=== PATIENT | male | born 1955 | race American Indian/Alaskan Native ===

== ENCOUNTER 2017-12-01 19:42 | Inpatient (IN) | payer BC ==
[2017-12-01 19:43] VITALS: BMI 38.0
[2017-12-01] MEDS ORDERED: Insulin Regular 1 UNITS/0.01 ML ML IV STA (20:08)
[2017-12-01] MEDS ORDERED: EnalaprilAT 1.25 mg/ml Inj IVP STA (20:10)
[2017-12-01] MEDS ORDERED: Sodium Chloride 0.9% 1,000 ML IV ONE (20:10)
--- NOTE | 2017-12-01 20:16 | ED PDOC ---
Arrival/HPI - General Chief Complaint: High Blood Sugar Time Seen by Provider: 12/01/17 19:45 Historian: Patient, Family (Son) - History of Present Illness Time/Duration: > month Symptom Onset: Gradual Symptom Course: Worsening Severity Level: Moderate Associated Symptoms (Text): 12/01/17 20:14 Patient reports that he went to visit his father in [place] approximately one month ago and ran out of all of his medications including his insulin. His blood sugar and blood pressure had been elevated. He has polyuria and polydipsia. No headache dizziness or lightheadedness. No chest pain palpitations or dyspnea. No abdominal pain nausea vomiting or diarrhea. No fever or chills. Past Medical History - Infectious Disease Hx of Infectious Diseases: None - Cardiac Hx Cardiac Disorders: Yes Hx Hypertension: Yes - Pulmonary Hx Respiratory Disorders: Yes Hx Pneumonia: Yes - Neurological Hx Neurological Disorder: No - HEENT Hx HEENT Disorder: Yes (left ear hearing aid) - Renal Hx Renal Disorder: No - Endocrine/Metabolic Hx Endocrine Disorders: Yes Hx Diabetes Mellitus Type 1: Yes Other/Comment: DKA - Hematological/Oncological Hx Blood Disorders: No - Integumentary Hx Dermatological Disorder: No - Musculoskeletal/Rheumatological Hx Musculoskeletal Disorders: No - Gastrointestinal Hx Gastrointestinal Disorders: No - Genitourinary/Gynecological Hx Genitourinary Disorders: No - Psychiatric Hx Psychophysiologic Disorder: No Hx Substance Use: No - Anesthesia Hx Anesthesia Reactions: No - Suicidal Assessment Feels Threatened In Home Enviroment: No Family/Social History - Physician Review Nursing Documentation Reviewed: Yes Family/Social History: Unknown Family HX Smoking Status: Never Smoked Hx Alcohol Use: No Hx Substance Use: No Allergies/Home Meds Allergies/Adverse Reactions: Allergies No Known Allergies Allergy (Verified 12/01/17 19:44) Review of Systems - Physician Review All systems were reviewed & negative as marked: Yes - Review of Systems Constitutional: Fatigue. absent: Fevers Respiratory: absent: SOB, Cough, Wheezing Cardiovascular: absent: Chest Pain, Palpitations, Syncope Gastrointestinal: absent: Abdominal Pain, Diarrhea, Nausea, Vomiting, Anorexia Genitourinary Male: Frequency. absent: Dysuria, Hematuria Neurological: absent: Headache, Dizziness, Focal Weakness Physical Exam Vital Signs Temp Pulse Resp BP Pulse Ox 12/01/17 21:17 87 18 165/113 H 97 12/01/17 20:22 160/82 H 12/01/17 19:47 98.7 F 98 H 17 180/130 H 95 Temperature: Afebrile Blood Pressure: Hypertensive Pulse: Regular Respiratory Rate: Normal Appearance: Positive for: Well-Appearing, Non-Toxic, Comfortable Pain Distress: None Mental Status: Positive for: Alert and Oriented X 3 - Systems Exam Head: Present: Atraumatic, Normocephalic Pupils: Present: PERRL Extroacular Muscles: Present: EOMI Conjunctiva: Present: Normal Mouth: Present: Moist Mucous Membranes Pharnyx: No: ERYTHEMA, EXUDATE, TONSILS ENLARGED Neck: Present: Normal Range of Motion Respiratory/Chest: Present: Clear to Auscultation, Good Air Exchange, Decreased Breath Sounds. No: Respiratory Distress, Accessory Muscle Use Cardiovascular: Present: Regular Rate and Rhythm, Normal S1, S2. No: Murmurs Abdomen: No: Tenderness, Distention, Peritoneal Signs, Rebound, Guarding Back: Present: Normal Inspection Upper Extremity: Present: Normal Inspection. No: Cyanosis, Edema Lower Extremity: Present: Normal Inspection. No: Edema Neurological: Present: GCS=15, CN II-XII Intact, Speech Normal, Motor Func Grossly Intact Skin: Present: Warm, Dry, Normal Color. No: Rashes Psychiatric: Present: Alert, Oriented x 3, Normal Insight, Normal Concentration Medical Decision Making ED Course and Treatment: 12/01/17 20:18 EKG shows normal sinus rhythm rate approximately 90 with a primary AV block and no acute ST or T-wave changes 12/01/17 21:39 Discussed with , who accepts to her service on a telemetry observation bed. - Lab Interpretations Lab Results: 12/01/17 20:24 12/01/17 20:24 Lab Results 12/01/17 20:24: Sodium 132, Chloride 95 L, Potassium 3.9, Carbon Dioxide 26, Anion Gap 15, BUN 19, Creatinine 1.0, Est GFR ( Amer) > 60, Est GFR (Non- Af Amer) > 60, Random Glucose 591 H* D, Calcium 9.0, Magnesium 1.9, Total Bilirubin 0.5, AST 16 L, ALT 43, Alkaline Phosphatase 135 H, Lactate Dehydrogenase 604, Total Creatine Kinase 183, Troponin I < 0.01 D, Total Protein 7.4, Albumin 4.1, Globulin 3.3, Albumin/Globulin Ratio 1.2 12/01/17 20:24: pO2 58 H, VBG pH 7.39, VBG pCO2 47.0, VBG HCO3 28.5 H, VBG Total CO2 29.9 H, VBG O2 Sat (Calc) 92.4 H, VBG Base Excess 2.8 H, VBG Potassium 3.9, Sodium 132.0, Chloride 93.0 L, Glucose 666 H*, Lactate 1.1, FiO2 21.0, Venous Blood Potassium 3.9 12/01/17 20:24: WBC 8.2, RBC 5.29, Hgb 15.1, Hct 41.8 L, MCV 79.0 L, MCH 28.5, MCHC 36.1, RDW 12.6, Plt Count 242, MPV 11.4 H, Gran % 62.8, Lymph % (Auto) 28.8 , [place] % (Auto) 6.3 H, Eos % (Auto) 2.0, Baso % (Auto) 0.1, Gran # 5.12, Lymph # (Auto) 2.4, [place] # (Auto) 0.5, Eos # (Auto) 0.2, Baso # (Auto) 0.01 - RAD Interpretation Radiology Orders: 12/01/17 20:07 CHEST PORTABLE [RAD] Stat Chest one view shows no infiltrate effusion or cardiomegaly. Business Continuity Specialist: ED Physician - Medication Orders Current Medication Orders: Sodium Chloride (Sodium Chloride 0.9%) 1,000 mls @ 500 mls/hr IV ONCE ONE Stop: 12/01/17 22:09 Last Admin: 12/01/17 20:21 Dose: 500 mls/hr eMAR Start Stop Document 12/01/17 20:21 CNR (Rec: 12/01/17 20:22 CNR [id number]) Intravenous Solution Start Date 12/01/17 Start Time 20:22 Discontinued Medications Enalaprilat (Vasotec Iv) 5 mg IVP STAT STA Stop: 12/01/17 20:11 Last Admin: 12/01/17 20:22 Dose: 5 mg MAR Blood Pressure Document 12/01/17 20:22 CNR (Rec: 12/01/17 20:22 CNR [id number]) Blood Pressure Blood Pressure (100/60-150/90 mm Hg) 160/82 IVP Administration Document 12/01/17 20:22 CNR (Rec: 12/01/17 20:22 CNR [id number]) Charges for Administration # of IVP Administrations 1 Insulin Human Regular (Humulin R) 10 units IV ONCE STA Stop: 12/01/17 20:09 Last Admin: 12/01/17 20:22 Dose: 10 u eMAR Start Stop Document 12/01/17 20:22 CNR (Rec: 12/01/17 20:22 CNR [id number]) Intravenous Solution Start Date 12/01/17 Start Time 20:22 Disposition/Present on Arrival - Present on Arrival Any Indicators Present on Arrival: No History of DVT/PE: No History of Uncontrolled Diabetes: Yes Urinary Catheter: No History of Decub. Ulcer: No History Surgical Site Infection Following: None - Disposition Have Diagnosis and Disposition been Completed?: Yes Diagnosis: Hypertension, Hyperglycemia Disposition: HOSPITALIZED Disposition Time: 21:34 Patient Plan: Observation, Telemetry Patient Problems: Current Active Problems Problem Status Onset Hyperglycemia Acute Hypertension Acute Condition: GOOD Forms: [employer] ([place])
[2017-12-01 20:28] LABS: VENOUS BLOOD GAS BASE EXCESS 2.8 mmol/L (0.0-2.0); VENOUS BLOOD GAS PO2 58 mm/Hg (30-55); VENOUS BLOOD PH 7.39 (7.32-7.43)
[2017-12-01 20:34] LABS: BASO # 0.01 K/mm3 (0.0-2.0); BASO % 0.1 % (0.0-3.0); EOS # 0.2 (0.0-0.7); GRAN # 5.12 (1.4-6.5); GRAN % 62.8 % (50.0-68.0); HEMOGLOBIN 15.1 g/dL (14.0-18.0); LYMPH # 2.4 (1.2-3.4); LYMPH % 28.8 % (22.0-35.0); MEAN CORPUSCULAR HEMOGLOBIN 28.5 pg (25.0-35.0); MEAN CORPUSCULAR HGB CONC 36.1 g/dl (31.0-37.0); MEAN PLATELET VOLUME 11.4 fl (7.0-11.0); MONO # 0.5 (0.1-0.6); MONO % 6.3 % (1.0-6.0); RBC 5.29 10^6/uL (3.5-6.1); RED CELL DISTRIBUTION WIDTH 12.6 % (11.5-14.5); WHITE BLOOD COUNT 8.2 10^3/ul (4.5-11.0)
[2017-12-01 20:48] LABS: ALB/GLOB RATIO 1.2 (1.1-1.8); ALBUMIN 4.1 g/dL (3.0-4.8); ALT/SGPT 43 U/L (7-56); AST/SGOT 16 U/L (17-59); BLOOD UREA NITROGEN 19 mg/dL (7-21); GFR AFRICAN-AMERICAN > 60; GFR NON-AFRICAN AMERICAN > 60
[2017-12-01 20:51] LABS: TROPONIN I < 0.01 ng/mL
[2017-12-01 23:06] LABS: URINE BILIRUBIN NEGATIVE (NEGATIVE); URINE BLOOD NEGATIVE (NEGATIVE); URINE GLUCOSE (UA) >=1000 mg/dL (NEGATIVE); URINE LEUKOCYTE ESTERASE NEGATIVE Leu/uL (NEGATIVE); URINE PROTEIN NEGATIVE mg/dL (<30 mg/dL); URINE UROBILINOGEN 0.2 E.U./dL (<1 E.U./dL)
[2017-12-01 23:07] LABS: URINE APPEARANCE CLEAR (CLEAR); URINE COLOR YELLOW (YELLOW)
[2017-12-02] MEDS: Sodium Chloride 0.9% 1,000 ML IV SCH ×3 (00:39→21:53)
[2017-12-02] MEDS ORDERED: Insulin Regular 1 UNITS/0.01 ML ML SC STA (01:20)
[2017-12-02] MEDS: Insulin Reg-MEDIUM-Coverage SC SCH ×3 (08:01→16:46)
--- NOTE | 2017-12-02 08:50 | RAD ---
Date of service: 12/01/2017 HISTORY: weak COMPARISON: 06/06/2016 FINDINGS: LUNGS: No active pulmonary disease. PLEURA: No significant pleural effusion identified, no pneumothorax apparent. CARDIOVASCULAR: Normal. OSSEOUS STRUCTURES: No significant abnormalities. VISUALIZED UPPER ABDOMEN: Normal. OTHER FINDINGS: None. IMPRESSION: No active disease.
[2017-12-02 17:09] LABS: HDL CHOLESTEROL 39 mg/dL (29-60)
[2017-12-02 17:21] LABS: LDL CHOLESTEROL 54 mg/dL (0-129); TROPONIN I < 0.01 ng/mL
[2017-12-02] MEDS ORDERED: Potassium Chloride 20 mEq ER Tab PO ONE (18:07)
[2017-12-02] MEDS: Insulin Lispro (humaLOG) LOW Coverage SC SCH (21:52)
[2017-12-02] MEDS ORDERED: Insulin Detemir 100 units/ml Vial (Levemir) SC SCH (22:00)
[2017-12-02 22:35] LABS: FOLATE 16.1 ng/mL
--- NOTE | 2017-12-03 02:15 | CON ---
Copied To: Nancy Jain MD Attending MD: Nancy Jain MD DATE: 12/02/2017 ENDOCRINOLOGY CONSULTATION LOCATION: Room 265. HISTORY OF PRESENT ILLNESS: This is a 62-year-old male with known history of type 2 insulin-requiring diabetes presenting here with marked hyperglycemic accelerations related to inadvertent drug omission after the patient apparently ran out of his insulin supply, was visiting his father in [place], and is now being referred for diabetic evaluation and management. PAST MEDICAL HISTORY: History of type 2 insulin-requiring diabetes, on a combination of Humalog given as 12 units t.i.d. before meals with Levemir given as 20 units every 12 hours in combination with Janumet given as mg b.i.d., history of hypertensive cardiovascular disease and dyslipidemia. FAMILY HISTORY: Positive for diabetes and hypertension. SOCIAL HISTORY: The patient has supportive family. No known substance use. REVIEW OF SYSTEMS: As mentioned above. Admits to progressive bouts of dizziness and lightheadedness, worse in the last week or so prior to admission with bifrontal headaches and visual blurring as noted. Also admits to generalized body weakness with increasing somnolence and lethargy, again, worse in the last few days prior to admission. No chest pains or palpitations or PND. His oral intake has been variable with occasional dyspepsia and nausea, but no overt vomiting episodes. Also admits to marked polyuria, nocturia and polydipsia and about a 10-pound or so weight loss. Also admits to lower extremity paresthesias, especially, nocturnally. PHYSICAL EXAMINATION: GENERAL: This is an overweight male, in no apparent distress. VITAL SIGNS: Blood pressure of 180/100, pulse of 100 beats per minute regular, temperature 99, respirations 20, height is 6 feet, weight is 269 pounds. HEENT: Head normocephalic. Eyes anicteric with pink conjunctivae. Funduscopy not possible at this time. Ears, nose and throat otherwise normal. NECK: Supple. Thyroid gland is normal in size. No carotid bruits or cervical adenopathy. CARDIOPULMONARY: Some adynamic precordium. S1, S2 is rapid and regular. LUNGS: Clear to auscultation. ABDOMEN: Obese, soft with positive bowel sounds. EXTREMITIES: No peripheral edema. Pulses are +2 bilaterally. LABORATORY DATA: His chemistry showed a BUN of 19, sodium 132, potassium 3.9, chloride 95, CO2 of 26, glucose 591 and creatinine 1. His hemoglobin A1c is 14.8% which is clearly elevated and indicative of suboptimal metabolic control of his diabetic condition. The repeat A1c is 15% done tonight as noted. ASSESSMENT: This is a 62-year-old male with uncontrolled and decompensated type 2 insulin-requiring diabetes with marked hyperglycemic accelerations with clearly suboptimal metabolic control of his diabetic condition even prior to this admission and even prior to his inadvertent omission of his insulin regimen and also presents here with accelerated hypertension as noted thereof. PLAN OF MANAGEMENT: We will restart the patient once again on more physiologic basal and bolus insulin drug combination as ordered. We will start him with Levemir given as 20 units subcu at bedtime daily to start tonight. We will also add Humalog given as 10 units subcutaneous t.i.d. before meals to start at breakfast time tomorrow morning as ordered. We will modify the coverage scale to obviate hypoglycemia and detailed orders have been given. We will also increase his IV hydration with normal saline running at 100 mL/hour to fully replenish his lost fluids and electrolytes from the increased osmotic diuresis as expected thereof. We will obtain serial chemistries and supplement accordingly as needed. We will follow. Nancy Jain MD
--- NOTE | 2017-12-03 06:58 | CARD ---
APPROVED REPORT Date of service: 12/01/2017 EKG Measurement Heart [id number] <Conclusion> Normal sinus rhythm Voltage criteria for left ventricular hypertrophy Abnormal ECG
--- NOTE | 2017-12-03 07:44 | CP.PCM.PN ---
Subjective - Date & Time of Evaluation Date of Evaluation: 12/03/17 Time of Evaluation: 07:30 - Subjective Subjective: Endocrinology progress note for Dr. Jain: Patient was seen and examined at bedside. Patient resting in bed comfortably. States that he is feeling much better. States that his blood sugars have been in the high 200's. No other complaints. 12 point ROS performed and negative other than stated above. Objective - Vital Signs/Intake and Output Vital Signs (last 24 hours): Temp Pulse Resp BP Pulse Ox 97.9 F 65 18 170/105 H 98 12/03/17 06:00 12/03/17 06:35 12/03/17 06:00 12/03/17 06:35 12/03/17 06:00 Intake and Output: 12/03/17 12/03/17 06:59 18:59 Intake Total 1700 Output Total 900 Balance 800 - Medications Medications: Current Medications Clonidine HCl (Catapres) 0.2 mg PO TID JUANPABLO Sodium Chloride (Sodium Chloride 0.9%) 1,000 mls @ 100 mls/hr IV .Q10H JUANPABLO Last Admin: 12/02/17 21:53 Dose: 100 mls/hr Insulin Detemir (Levemir) 20 unit SC HS JUANPABLO Last Admin: 12/02/17 21:52 Dose: 20 units Insulin Human Lispro (Humalog Low) 0 units SC ACHS JUANPABLO PRN Reason: Protocol Last Admin: 12/02/17 21:52 Dose: Not Given Insulin Human Lispro (Humalog) 10 units SC AC JUANPABLO Lisinopril (Zestril) 40 mg PO DAILY JUANPABLO - Constitutional Appears: No Acute Distress - Head Exam Head Exam: ATRAUMATIC, NORMOCEPHALIC - Eye Exam Eye Exam: EOMI - ENT Exam ENT Exam: Mucous Membranes Moist - Respiratory Exam Respiratory Exam: Clear to Ausculation Bilateral. absent: Wheezes - Cardiovascular Exam Cardiovascular Exam: RRR, +S1, +S2 - GI/Abdominal Exam GI & Abdominal Exam: Soft. absent: Tenderness - Extremities Exam Extremities Exam: absent: Calf Tenderness - Neurological Exam Neurological Exam: Alert, Awake, Oriented x3 - Psychiatric Exam Psychiatric exam: Normal Mood - Skin Skin Exam: Dry, Intact, Warm Assessment and Plan - Assessment and Plan (Free Text) Assessment: 62 M with uncontrolled and decompensated insulin requiring diabetes with marked hyperglycemic accelerations 2/2 inadvertent omission of his insulin regimen at home. Carb consistent diet Continue Basal insulin Levemir 30 HS Cont Bolus insulin of Humalog 10units AC ISS with Humalog as protocol Cont home (Janumet ) with Jauvia 100mg daily and Metformin 1000mg BID Serial chemistries Fingersticks ACHS Case and plan was reviewed and discussed with Dr Jain. Mina Eduardo, PGY3
[2017-12-03] MEDS: Sodium Chloride 0.9% 1,000 ML IV SCH (07:45)
--- NOTE | 2017-12-03 07:45 | CON ---
Copied To: Kayden Nuñez MD Attending MD: Kayden Nuñez MD DATE: 12/02/2017 CARDIOLOGY CONSULTATION REASON FOR CONSULTATION: Uncontrolled hypertension. HISTORY OF PRESENT ILLNESS: The patient is 62-year-old -[place] male who has history of hypertension, reportedly he went to visit his father in [place] one month ago and ran out of his medications including blood pressure and diabetic medications. The patient was experiencing polyuria and polydipsia. He denies any chest pain. He did report headache at times. The patient did not have a clear reason why he did not renew his medications. At this time, patient denies any chest pain and he is unaware of any prior cardiac issue other than a history of hypertension. SOCIAL HISTORY: Patient is a nonsmoker. 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 MEDICATIONS: The patient home medications, which he had now is including amlodipine/valsartan 10/320 mg once a day, Janumet mg one tablet twice a day, Toprol XL 50 mg daily, hydralazine 10 mg three times a day, K-Dur 20 mEq once a day and Tylenol one tablet p.r.n. Current hospital medications are Zestril 40 mg p.o. daily. Patient did receive regular insulin coverage and 5 mg of IV Vasotec as a single stat dose earlier. REVIEW OF SYSTEMS: No nausea or vomiting. No fever or chills. No dizziness or syncope. PHYSICAL EXAMINATION: GENERAL: The patient is a middle-aged male who does not appear to be in any acute distress. VITAL SIGNS: Blood pressure 154/112, heart rate 78, temperature 97.8, respirations 18. HEENT: Normocephalic. NECK: No JVD. CHEST: Clear. HEART: S1, S2 regular. ABDOMEN: Soft. EXTREMITIES: No edema. LABORATORY DATA: SMA-7: Sodium 132, potassium 3.9, chloride 95, CO2 of 26, glucose 591, BUN 19, creatinine 1. Cardiac enzymes, two sets of troponins were negative. Lipid profile; total cholesterol 122, triglycerides 171, HDL cholesterol is 39, LDL cholesterol is 54. Alkaline phosphatase elevated to 135. CBC: WBC is 8.2, hemoglobin 15.1, hematocrit 41.8, platelet count 242,000. EKG revealed sinus rhythm, LVH by voltage, heart rate is 90. Echocardiographic study performed in 05/2016 revealed normal ventricular size, moderate concentric LVH with normal ejection fraction and grade I abnormal relaxation pattern. ASSESSMENT: 1. Uncontrolled hypertension. 2. Uncontrolled diabetes mellitus. 3. Hypertriglyceridemia most likely to uncontrolled diabetes mellitus. The patient's hemoglobin A1c is 14.8. RECOMMENDATIONS: Optimize blood sugar control. Continue IV hydration with normal saline at 60 mL an hour. Continue Zestril 40 mg p.o. daily. Start clonidine at 0.2 mg p.o. twice a day. I will administer one dose of Lasix 40 mg IV push as single dose and K-Dur 20 mEq as a single oral dose. Kayden Nuñez MD
[2017-12-03 07:51] LABS: HEMOGLOBIN 13.6 g/dL (14.0-18.0); MEAN CELL VOLUME 79.4 fl (80.0-105.0); MEAN CORPUSCULAR HEMOGLOBIN 27.5 pg (25.0-35.0); MEAN CORPUSCULAR HGB CONC 34.6 g/dl (31.0-37.0); MEAN PLATELET VOLUME 11.1 fl (7.0-11.0); RBC 4.95 10^6/uL (3.5-6.1); RED CELL DISTRIBUTION WIDTH 13.1 % (11.5-14.5); WHITE BLOOD COUNT 8.2 10^3/ul (4.5-11.0)
[2017-12-03] MEDS: Insulin Lispro (humaLOG) LOW Coverage SC SCH ×4 (08:05→22:24)
[2017-12-03 08:10] LABS: BLOOD UREA NITROGEN 15 mg/dL (7-21); GFR AFRICAN-AMERICAN > 60; GFR NON-AFRICAN AMERICAN > 60
[2017-12-03 08:11] LABS: ALB/GLOB RATIO 1.1 (1.1-1.8); ALBUMIN 3.2 g/dL (3.0-4.8); ALT/SGPT 26 U/L (7-56); AST/SGOT 14 U/L (17-59); CALCIUM 8.5 mg/dL (8.4-10.5)
[2017-12-03] MEDS: Insulin Lispro 1 UNITS/0.01 ML SC SCH ×3 (08:48→17:09)
--- NOTE | 2017-12-03 09:00 | HP ---
12/02/17 Copied To: Barbara Hamilton MD Attending MD: Barbara Hamilton MD CHIEF COMPLAINT: High blood sugar. HISTORY OF PRESENT ILLNESS: Mr. John Cowan reports that he went to visit his father in [place] approximately one month ago and ran out of all his medications including insulin. His blood sugar and blood pressure had been elevated. He has polyuria, polydipsia. No headache, dizziness, or lightheadedness. No chest pain, palpitations, or dyspnea. No abdominal pain. No fever. No chills, but feeling fatigued and tired. Patient's two children are nurses, they forced the father to go to the hospital. PAST MEDICAL HISTORY: Hypertension, history of pneumonia, left ear hearing aid, diabetes mellitus . FAMILY HISTORY: Father and mother, noncontributory. HABITS: Never smoked. No drugs. No ethanol. ALLERGIES: PATIENT IS NOT ALLERGIC WITH ANY MEDICATION. HOME MEDICATIONS: Reviewed by me, but patient is noncompliant . REVIEW OF SYSTEMS: Patient is seen and examined on the bedside, looking comfortable that moment. Feeling just fatigued. No fever. No shortness of breath, cough, or wheezing. No chest pain, palpitation, or syncope. No abdominal pain, diarrhea, nausea, vomiting, or anorexia, but having frequency of urination. No dysuria or hematuria. No headache, dizziness, or focal weakness. PHYSICAL EXAMINATION: VITAL SIGNS: Temperature 98.7, pulse 98, respiratory rate 17, blood pressure 180/130, pulse oximetry 95%. HEENT: Head normocephalic, atraumatic. Eyes PERRLA. Extraocular muscles intact. Conjunctivae clear. Nose patent. Mucous membranes moist. NECK: Supple. No carotid bruit. No JVD or thyromegaly. CHEST: Bilaterally symmetrical. HEART: S1 and S2 positive. LUNGS: Clear to auscultation. ABDOMEN: Soft. Bowel sounds present. No organomegaly. EXTREMITIES: No edema. No cyanosis. NEUROLOGIC: Patient is awake and alert. Moving all four extremities. No focal deficit. LABORATORY DATA: White blood cells 8.2, hemoglobin of 15.1, hematocrit 41.8, platelets 242. Sodium 132, potassium 3.9, BUN 90, creatinine 1, glucose 591. ASSESSMENT AND PLAN: Mr. Cowan is a 62-year-old male with hypochloremia, uncontrolled diabetes mellitus , insulin requiring, noncompliant with the medications. Came with hyperglycemia, polyuria, fatigue, accelerated hypertension, history of left hearing aid. We admitted the patient, gave insulin and put on sliding scale. Endocrinology consult called. Medicine given for blood pressure. Gastrointestinal and deep vein thrombosis prophylaxes. Continue present treatment. Repeat labs. We will follow up. Barbara Hamilton MD MTDD
--- NOTE | 2017-12-03 10:11 | PN ---
Copied To: Nancy Jain MD Attending MD: Nancy Jain MD DATE: 12/03/2017 ENDOCRINOLOGY FOLLOWUP NOTE LOCATION: Room 265. SUBJECTIVE: This is a 62-year-old male with recent uncontrolled type 2 insulin-requiring diabetes presenting here with generalized body weakness and marked polyuria, nocturia and polydipsia with apparent recent drug omission of his insulin regimen while visiting his father and is now being followed closely for metabolic management. His glycemic levels are fluctuating but improved as noted overnight and the glucose levels overnight have ranged from 236-280 mg/dL. The latest chemistries showed a BUN of 15, sodium 137, potassium 3.8, chloride 100, CO2 of 30, glucose 251 and creatinine 0.9. His hemoglobin A1c is 15 % which is quite elevated and is confirmatory of his suboptimal metabolic control on the outpatient as noted thereof. ASSESSMENT: This is a 62-year-old male with uncontrolled and decompensated type 2 insulin-requiring diabetes with recent drug omission from a recent travel to [place] and ran out of his insulin supplies and is now being admitted with marked hyperglycemic accelerations as noted thereof. PLAN OF MANAGEMENT: We will modify his current basal and bolus insulin regimen and add Humalog given as 10 units t.i.d. before meals to start this morning as ordered. We will also titrate and increase his basal insulin with Levemir to be given at a higher dose of 30 units subcu at bedtime daily to start tonight. We will continue the low-dose correction scale using Humalog insulin as given. We will continue the IV hydration as ordered and obtain serial chemistries and supplement accordingly as needed. We will follow and advise accordingly. Nancy Jain MD
[2017-12-03] MEDS ORDERED: Potassium Chloride 20 mEq ER Tab PO ONE (14:08)
--- NOTE | 2017-12-03 19:14 | PN ---
Copied To: Matilde Renteria MD Attending MD: Matilde Renteria MD DATE: 12/03/2017 REASON FOR CONSULTATION AND FOLLOWUP: Uncontrolled hypertension. SUBJECTIVE: The patient denies any chest pain, shortness of breath, or any palpitation. OBJECTIVE: GENERAL: Not in apparent distress. VITAL SIGNS: Temperature afebrile, heart rate 64, blood pressure 149/112. HEENT: PERRLA. Extraocular muscles are intact. NECK: Supple. No carotid bruits. No thyromegaly. CHEST: Clear to auscultation. HEART: S1 and S2, regular. ABDOMEN: Soft. EXTREMITIES: Clubbing and cyanosis, negative. LABORATORY DATA: Blood workup as follows: WBC 8.8, hemoglobin 13.6, hematocrit 39.3, and platelet count 222. Chemistry showed sodium 137, potassium 3.8, chloride 100, carbon dioxide 30, anion gap of 11. BUN 15, creatinine 0.9. TSH 1.3. Triglyceride 171, cholesterol 122, LDL 54, HDL 39. IMPRESSION: A 62-year-old male with past medical history significant for hypertension, on multiple hypertensive medication; admitted with uncontrolled hypertension, who ran out of medication, who reportedly visit to [place] to see his ailing father and got ran out the medication, came in here with uncontrolled hypertension, 180/130 diastolic. The patient denies any chest pain, shortness of breath, or any palpitation. So far, no evidence of acute myocardial infarction. Troponin remains flat x3. RECOMMENDATIONS: Aggressive control of blood pressure. We will get the lipid profile, TSH, hemoglobin A1c. Echo to assess LV function. Once the patient's blood pressure is well controlled, we will do a stress test as outpatient. We will follow with you. Thank you Dr. Hamilton, for providing us the opportunity in taking care of the patient, John Cowan. Matilde Renteria MD
[2017-12-03] MEDS ORDERED: Insulin Detemir 100 units/ml Vial (Levemir) SC SCH (22:00)
[2017-12-04] MEDS: Insulin Lispro 1 UNITS/0.01 ML SC SCH ×3 (07:55→17:32)
--- NOTE | 2017-12-04 07:56 | CP.PCM.PN ---
Subjective - Date & Time of Evaluation Date of Evaluation: 12/04/17 Time of Evaluation: 07:00 - Subjective Subjective: Endocrinology progress note for Dr. Jain: Patient was seen and examined at bedside. Patient resting in bed comfortably. Feeling well. No complaints at this time. 12 point ROS performed and negative other than stated above. Objective - Vital Signs/Intake and Output Vital Signs (last 24 hours): Temp Pulse Resp BP Pulse Ox 98.2 F 89 16 155/88 H 95 12/04/17 00:01 12/04/17 02:00 12/04/17 00:01 12/03/17 18:18 12/04/17 00:01 Intake and Output: 12/04/17 12/04/17 06:59 18:59 Intake Total 540 Output Total 1400 Balance -860 - Medications Medications: Current Medications Furosemide (Lasix) 40 mg PO DAILY [facility] Hydralazine HCl (Apresoline) 10 mg PO Q6 PRN PRN Reason: for SBP >160 Hydralazine HCl (Apresoline) 50 mg PO TID [facility] Last Admin: 12/03/17 18:18 Dose: 50 mg Insulin Detemir (Levemir) 30 unit SC HS [facility] Last Admin: 12/03/17 22:25 Dose: 30 unit Insulin Human Lispro (Humalog Low) 0 units SC ACHS [facility] PRN Reason: Protocol Last Admin: 12/03/17 22:24 Dose: 2 units Insulin Human Lispro (Humalog) 14 units SC AC [facility] Lisinopril (Zestril) 40 mg PO DAILY [facility] Last Admin: 12/03/17 10:09 Dose: 40 mg Metformin HCl (Glucophage) 1,000 mg PO BID [facility] Last Admin: 12/03/17 17:51 Dose: 1,000 mg Metoprolol Tartrate (Lopressor) 25 mg PO BID [facility] Last Admin: 12/03/17 17:51 Dose: 25 mg Sitagliptin Phosphate (Januvia) 100 mg PO DAILY [facility] Spironolactone (Aldactone) 25 mg PO BID [facility] Last Admin: 12/03/17 17:52 Dose: 25 mg - Labs Labs: 12/03/17 07:00 12/03/17 07:00 - Constitutional Appears: No Acute Distress - Eye Exam Eye Exam: EOMI - ENT Exam ENT Exam: Mucous Membranes Moist - Respiratory Exam Respiratory Exam: Clear to Ausculation Bilateral. absent: Wheezes - Cardiovascular Exam Cardiovascular Exam: RRR, +S1, +S2 - GI/Abdominal Exam GI & Abdominal Exam: Soft. absent: Tenderness - Extremities Exam Extremities Exam: absent: Calf Tenderness - Neurological Exam Neurological Exam: Alert, Awake, Oriented x3 - Psychiatric Exam Psychiatric exam: Normal Mood - Skin Skin Exam: Intact, Warm Assessment and Plan - Assessment and Plan (Free Text) Assessment: 62 M with uncontrolled and decompensated insulin requiring diabetes with marked hyperglycemic accelerations 2/2 inadvertent omission of his insulin regimen at home. Carb consistent diet Continue Basal insulin Levemir 30 HS Cont Bolus insulin of Humalog 14 units AC ISS with Humalog as protocol Cont with Jauvia 100mg daily and Metformin 1000mg BID (on home Janumet ) Serial chemistries and Fingersticks ACHS Case and plan was reviewed and discussed with Dr Jain. Mina Eduardo, PGY3
--- NOTE | 2017-12-04 08:42 | PN ---
Copied To: Barbara Hamilton MD Attending MD: Barbara Hamilton MD. DATE: 12/03/2017 SUBJECTIVE: Patient is seen and examined at the bedside. Patient is looking comfortable. Blood pressure is better, sugar is better . No fever, no chills. No headache, no dizziness. No hematuria or hematochezia. PHYSICAL EXAMINATION: VITAL SIGNS: Temperature 97.9, pulse 65, respiratory rate 18, blood pressure 170/105, pulse oximetry 98. HEENT: Head normocephalic, atraumatic. Eyes, PERRLA. Extraocular muscles intact. Conjunctivae clear. Nose patent. Mucous membranes moist. NECK: Supple. No carotid bruit. No JVD or thyromegaly. CHEST: Bilaterally symmetrical. HEART: S1 and S2 positive. LUNGS: Clear to auscultation. ABDOMEN: Soft. Bowel sounds present. No organomegaly. EXTREMITIES: No edema. No cyanosis. NEUROLOGIC: Patient is awake and alert. Moving all four extremities. No focal deficit. MEDICATIONS: Catapres, NS, Levemir insulin, Zestril. LABORATORY DATA: White blood cells 8.8, hemoglobin 13.6, hematocrit 39.3, platelets 222. Sodium 137, potassium 3.8, BUN 15, creatinine 0.9, glucose 256. AST 14. ASSESSMENT AND PLAN: Mr. John Cowan is a 62-year-old male with anemia, hypercholesterolemia, hypertriglyceridemia, diabetes mellitus uncontrolled, seen by Dr. Nancy Jain, senior java ui developer, decompensated insulin-requiring diabetes mellitus with marked hyperglycemia. Patient was educated for [facility] . diet. Continue basal insulin Levemir 30 units at bedtime. Continue bolus insulin of Humalog , Continue home Janumet, with Januvia 100 mg and metformin 1000 mg two times a day, fingerstick before meals and at bedtime. Seen by Dr. Renteria, fruit harvest worker, came with high blood pressure, getting better. Patient is noncompliant, not taking medicines from couple of weeks. Denies any chest pain, shortness of breath and palpitation today. So far no evidence of acute myocardial infarction. Troponin negative x3. Continue aggressive control of blood pressure. Continue following up lipid profile, TSH, hemoglobin A1c, echo to assess left ventricular function. Gastrointestinal and deep vein thrombosis prophylaxis. Repeat labs. We will follow up. Length of time discussion done with patient and patient's son and patient 's nursing staff. Barbara Hamilton MD MTDD
[2017-12-04] MEDS: Insulin Lispro (humaLOG) LOW Coverage SC SCH ×4 (09:13→22:08)
--- NOTE | 2017-12-04 14:09 | PN ---
Copied To: Matilde Renteria MD Attending MD: Matilde Renteria MD DATE: 12/04/2017 REASON FOR THE CONSULTATION AND FOLLOWUP: Uncontrolled hypertension. SUBJECTIVE: The patient denies any chest pain, shortness of breath or any palpitations. OBJECTIVE: GENERAL: Not in apparent distress. VITAL SIGNS: Temperature afebrile, heart rate 80, blood pressure 157/107. HEENT: PERRLA. Extraocular muscles intact. NECK: Supple. No carotid bruit or thyromegaly. CHEST: Clear to auscultation. HEART: S1, S2 regular. ABDOMEN: Soft. EXTREMITIES: Clubbing and cyanosis negative. LABORATORY DATA: Blood workup as follows: WBC 8.2, hemoglobin 13.6, hematocrit 39.3, platelet count 222. Chemistry shows sodium 137, potassium 3.8, chloride 100, carbon dioxide 30, anion gap of 11, BUN 15, creatinine 0.9. IMPRESSION: Uncontrolled hypertension, diabetes, obesity, noncompliance with the medications. The patient admitted with a blood pressure of 184/130 because medication ran out, no evidence of acute myocardial infarction. RECOMMENDATIONS: Continue aggressive medical treatment, emphasis on weight reduction modification, lifestyle modification, risk factor for coronary artery disease. I know that the patient is significantly improved. Discussed with the patient, we will do a stress test as an outpatient ;if the patient remains inpatient, we will schedule a stress test tomorrow. The patient had echocardiography 06/05/2016 that revealed normal LV function, and no significant valvular heart disease noted, RV systolic pressure of 22, and ejection fraction calculated reported 53%. Spironolactone also added to control the blood pressure as well as to supplement potassium. Thank you, Dr. Hamilton for providing us the opportunity in taking care of the patient, John Cowan. Matilde Renteria MD cc: Barbara Hamilton MD
--- NOTE | 2017-12-04 15:23 | PN ---
Copied To: Nancy Jain MD Attending MD: Nancy Jain MD DATE: 12/04/2017 ENDOCRINOLOGY FOLLOWUP NOTE LOCATION: Room 265. SUBJECTIVE: This is a 62-year-old male with recent uncontrolled type 2 insulin-requiring diabetes, presenting here with both accelerated hypertension and decompensation with hyperglycemic accelerations related to recent drug omission and is now being followed closely for metabolic management. His glycemic levels are very fluctuating as noted overnight with glucose levels ranging from 233 to 360 mg/dL last night this morning as noted. His latest chemistries showed a BUN of 15, sodium 137, potassium . ASSESSMENT: This is a 62-year-old with uncontrolled and decompensated type 2 insulin-requiring diabetes with recent insulin drug omission and presenting here with hyperglycemic accelerations as noted thereof. PLAN OF MANAGEMENT: We will modify once again his basal and bolus insulin regimen and place him on Humulin 14 units subcu t.i.d. before meals to start today. We will also increase the basal insulin with Levemir correction scale with a Humulin insulin as given to obviate hyperglycemia and detailed orders have been given. We will obtain serial chemistries and supplement accordingly as needed. We will follow. Nancy Jain MD
[2017-12-04 21:53] VITALS: RESP 20
[2017-12-04] MEDS ORDERED: Insulin Detemir 100 units/ml Vial (Levemir) SC SCH (22:00)
[2017-12-04 22:28] LABS: URINE BILIRUBIN NEGATIVE (NEGATIVE); URINE BLOOD NEGATIVE (NEGATIVE); URINE GLUCOSE (UA) 250 mg/dL (NEGATIVE); URINE LEUKOCYTE ESTERASE NEGATIVE Leu/uL (NEGATIVE); URINE PROTEIN NEGATIVE mg/dL (<30 mg/dL); URINE UROBILINOGEN 0.2 E.U./dL (<1 E.U./dL)
[2017-12-04 22:29] LABS: URINE APPEARANCE CLEAR (CLEAR); URINE COLOR YELLOW (YELLOW)
--- NOTE | 2017-12-05 06:10 | PN ---
Copied To: Barbara Hamilton MD Attending MD: Barbara Hamilton MD DATE: 12/04/2017 SUBJECTIVE: The patient is looking comfortable, went for echocardiography. Stress test tomorrow. Blood pressure is under control. Sugar is getting controlled. Dr. Nancy Jain, his wiener packer, is on the case. The patient is seen in his room, now he transferred to medical floor. Resting comfortably, feeling well. No nausea, vomiting or diarrhea. No hematuria or hematochezia. No swelling of the legs. No chest pain, no palpitation. No headache or dizziness. A 12-point review of systems performed, negative except above. PHYSICAL EXAMINATION VITAL SIGNS: Temperature 98.2, pulse 89, respiratory rate 16, blood pressure 155/80, pulse oximetry 98. HEENT: Head normocephalic, atraumatic. Eyes, PERRLA. Extraocular muscles intact. Conjunctivae clear. Nose patent. Mucous membrane moist. NECK: Supple. No carotid bruit. No JVD or thyromegaly. CHEST: Bilaterally symmetrical. HEART: S1 and S2 positive. LUNGS: Clear to auscultation. ABDOMEN: Soft, bowel sounds present, no organomegaly. EXTREMITIES: No edema, no cyanosis. NEUROLOGIC: The patient is awake and alert. Moving all 4 extremities. No focal deficits. MEDICATIONS: Lasix, hydralazine, insulin, Zestril, Glucophage, Lopressor, Januvia and Aldactone. LABORATORY DATA: White blood cells 8.2, hemoglobin 13.3, hematocrit 39.3, platelets 232. Sodium 137, potassium 3.8, BUN 15, creatinine 0.9, glucose 251. ASSESSMENT AND PLAN: Mr. Chapo Lopez is a 62 years old male with anemia, hyperglycemia, came with uncontrolled and decompensated insulin requiring diabetes with markedly hyperglycemic accelerated secondary to inadvertent omission of his insulin regimen at home and patient carb consistent diet, continue his insulin Levemir 30 units at bedtime, continue bolus insulin of Humalog 40 units before meals and insulin sliding scale Humalog as protocol, started Januvia, metformin, serial chemistries and fingerstick before meals and at bedtime as per Dr. Nancy Jain. The patient went for echocardiography today, reviewed by me, and is going for a stress tomorrow. Length of time discussion done with patient, as we tried to reach patient's son also, Chapo LopezJr., but he was working and cannot get discussion with him, but discussion done with the patient and he said he will talk with his son. Continue his aggressive medical treatment, emphasis on weight reduction modification, lifestyle modification, risk factors for coronary artery disease. The patient's echocardiography revealed normal left ventricular function, no significant valvular heart disease noted. We will continue present treatment. Appreciated Dr. Renteria's input also. We will follow up. Barbara Hamilton MD VASILE
--- NOTE | 2017-12-05 07:15 | CP.PCM.PN ---
Subjective - Date & Time of Evaluation Date of Evaluation: 12/05/17 Time of Evaluation: 06:10 - Subjective Subjective: Awake, alert, no distress, hard of hearing Reason for consultation and follow up: Cardiac evaluation for uncontrolled hypertension, he ran out of medications Seen and examined by me and Dr. Renteria Objective - Vital Signs/Intake and Output Vital Signs (last 24 hours): Temp Pulse Resp BP Pulse Ox 98.2 F 66 20 155/94 H 98 12/04/17 21:51 12/05/17 06:02 12/04/17 21:51 12/05/17 06:02 12/04/17 21:51 - Medications Medications: Current Medications Furosemide (Lasix) 40 mg PO DAILY [facility] Last Admin: 12/04/17 09:10 Dose: 40 mg Hydralazine HCl (Apresoline) 10 mg PO Q6 PRN PRN Reason: for SBP >160 Last Admin: 12/05/17 04:48 Dose: 10 mg Hydralazine HCl (Apresoline) 50 mg PO TID [facility] Last Admin: 12/04/17 17:31 Dose: 50 mg Insulin Detemir (Levemir) 34 unit SC HS [facility] Last Admin: 12/04/17 22:10 Dose: Not Given Insulin Human Lispro (Humalog Low) 0 units SC ACHS [facility] PRN Reason: Protocol Last Admin: 12/04/17 22:08 Dose: Not Given Insulin Human Lispro (Humalog) 14 units SC AC [facility] Last Admin: 12/04/17 17:32 Dose: 14 units Lisinopril (Zestril) 40 mg PO DAILY [facility] Last Admin: 12/04/17 09:10 Dose: 40 mg Metformin HCl (Glucophage) 1,000 mg PO BID [facility] Last Admin: 12/04/17 17:31 Dose: 1,000 mg Metoprolol Tartrate (Lopressor) 25 mg PO BID [facility] Last Admin: 12/04/17 17:32 Dose: 25 mg Sitagliptin Phosphate (Januvia) 100 mg PO DAILY [facility] Last Admin: 12/04/17 09:10 Dose: 100 mg Spironolactone (Aldactone) 25 mg PO BID [facility] Last Admin: 12/04/17 17:31 Dose: 25 mg - Labs Labs: 12/03/17 07:00 12/03/17 07:00 - Constitutional Appears: No Acute Distress - Head Exam Head Exam: NORMOCEPHALIC - Eye Exam Eye Exam: Normal appearance - ENT Exam ENT Exam: Mucous Membranes Moist - Respiratory Exam Respiratory Exam: Decreased Breath Sounds, Clear to Ausculation Bilateral, NORMAL BREATHING PATTERN - Cardiovascular Exam Cardiovascular Exam: REGULAR RHYTHM, +S1, +S2 - GI/Abdominal Exam GI & Abdominal Exam: Soft, Normal Bowel Sounds - Extremities Exam Extremities Exam: Normal Capillary Refill - Neurological Exam Neurological Exam: Alert, Awake, Oriented x3 - Psychiatric Exam Psychiatric exam: Normal Affect - Skin Skin Exam: Dry, Intact, Warm Assessment and Plan - Assessment and Plan (Free Text) Assessment: A 62 year old male who came in to the ER due to uncontrolled blood pressure and uncontrolled glucose. He was visiting his father in [place] last month and ran out of medications.History of hypertension, diabetes mellitus, obesity, no compliant with medications. Plan: For stress test today No distress,comfortable Blood pressure slightly controlled SBP 150's to 170's, will reevaluate tomorrow and adjust antihypertensive medications Continue current medications On Lasix 40 mg daily,Hydralazine 50 mg TID,Lisinopril 40 mg daily, Lopressor 25 mg BID, Aldactone 25 mg BID Continue current treatment Plan and treatment discussed with Dr. Renteria
--- NOTE | 2017-12-05 07:49 | CP.PCM.PN ---
Subjective - Date & Time of Evaluation Date of Evaluation: 12/05/17 Time of Evaluation: 07:20 - Subjective Subjective: Endocrinology progress note for Dr. Jain: Patient was seen and examined at bedside. Patient resting in bed comfortably. Patient is NPO for stress test this AM. Blood sugars better controlled and in the 100's. No complaints at this time. 12 point ROS performed and negative other than stated above. Objective - Vital Signs/Intake and Output Vital Signs (last 24 hours): Temp Pulse Resp BP Pulse Ox 98 F 66 20 155/94 H 95 12/05/17 06:00 12/05/17 06:02 12/05/17 06:00 12/05/17 06:02 12/05/17 06:00 - Medications Medications: Current Medications Furosemide (Lasix) 40 mg PO DAILY [facility] Last Admin: 12/04/17 09:10 Dose: 40 mg Hydralazine HCl (Apresoline) 10 mg PO Q6 PRN PRN Reason: for SBP >160 Last Admin: 12/05/17 04:48 Dose: 10 mg Hydralazine HCl (Apresoline) 50 mg PO TID [facility] Last Admin: 12/04/17 17:31 Dose: 50 mg Insulin Detemir (Levemir) 34 unit SC HS [facility] Last Admin: 12/04/17 22:10 Dose: Not Given Insulin Human Lispro (Humalog Low) 0 units SC ACHS [facility] PRN Reason: Protocol Last Admin: 12/04/17 22:08 Dose: Not Given Insulin Human Lispro (Humalog) 14 units SC AC [facility] Last Admin: 12/04/17 17:32 Dose: 14 units Lisinopril (Zestril) 40 mg PO DAILY [facility] Last Admin: 12/04/17 09:10 Dose: 40 mg Metformin HCl (Glucophage) 1,000 mg PO BID [facility] Last Admin: 12/04/17 17:31 Dose: 1,000 mg Metoprolol Tartrate (Lopressor) 25 mg PO BID [facility] Last Admin: 12/04/17 17:32 Dose: 25 mg Sitagliptin Phosphate (Januvia) 100 mg PO DAILY [facility] Last Admin: 12/04/17 09:10 Dose: 100 mg Spironolactone (Aldactone) 25 mg PO BID [facility] Last Admin: 12/04/17 17:31 Dose: 25 mg - Labs Labs: 12/03/17 07:00 12/03/17 07:00 - Constitutional Appears: No Acute Distress - Head Exam Head Exam: ATRAUMATIC - Eye Exam Eye Exam: EOMI - ENT Exam ENT Exam: Mucous Membranes Moist - Respiratory Exam Respiratory Exam: Clear to Ausculation Bilateral. absent: Wheezes - Cardiovascular Exam Cardiovascular Exam: RRR, +S1, +S2 - GI/Abdominal Exam GI & Abdominal Exam: Soft. absent: Tenderness - Extremities Exam Extremities Exam: absent: Calf Tenderness - Neurological Exam Neurological Exam: Alert, Awake, Oriented x3 - Psychiatric Exam Psychiatric exam: Normal Mood - Skin Skin Exam: Normal Color, Warm Assessment and Plan - Assessment and Plan (Free Text) Assessment: 62 M with uncontrolled and decompensated insulin requiring diabetes with marked hyperglycemic accelerations 2/2 inadvertent omission of his insulin regimen at home. Carb consistent diet Continue Basal insulin Levemir 34 HS and Bolus insulin of Humalog 14 units AC ISS with Humalog as protocol Cont with Jauvia 100mg daily and Metformin 1000mg BID Serial chemistries and Fingersticks ACHS Case and plan was reviewed and discussed with Dr Jain. Mina Eduardo, PGY3
[2017-12-05] MEDS: Insulin Lispro 1 UNITS/0.01 ML SC SCH ×2 (12:41→12:52)
[2017-12-05] MEDS: Insulin Lispro (humaLOG) LOW Coverage SC SCH ×2 (12:41→12:42)
[2017-12-05 12:55] VITALS: BP 156/96
--- NOTE | 2017-12-05 14:41 | PN ---
Copied To: Nancy Jain MD Attending MD: Nancy Jain MD DATE: 12/05/2017 ENDOCRINOLOGY FOLLOWUP LOCATION: Room 560. This is a 62-year-old male with recent uncontrolled type 2 insulin-requiring diabetes, now being followed closely for metabolic management. His glycemic levels are fluctuating today because of the withholding of the insulin regimen as he is undergoing cardiac workup with a stress test to be undertaken thereof. His glucose values overnight have ranged from 205 to 292 mg/dL. His latest chemistry showed a BUN of 15, sodium 137, potassium 3.8, chloride 100, CO2 30, glucose 251 and creatinine 0.9. His hemoglobin A1c, however, was 15%, which is clearly elevated and indicative of suboptimal metabolic control of his diabetic condition even prior to this admission. So at this time, we will continue the modified basal and bolus insulin regimen as given with Humalog given as 14 units subcu t.i.d. before meals as ordered. We will continue and titrate his Levemir given as basal insulin to 34 units subcu at bedtime daily to start tonight. We will also continue the Januvia given as 100 mg daily and metformin given as 1000 mg b.i.d. as ordered. We will obtain serial chemistries and supplement accordingly needed. We will follow with you. Nancy Jain MD
[2017-12-05 15:09] VITALS: PULSE 95; TEMP 98.4; O2SAT 97
--- NOTE | 2017-12-05 21:19 | CARD ---
APPROVED REPORT Date of service: 12/05/2017 Protocol: TIMUR Test Type: Sestamibi Stress Test Attending Physician: Dr. Matilde Gooden Referring Physician: Dr. Barbara Hamilton Test Indications: Chest Pain Height:6 ft 0 in Weight:272lbs Medications: Lasix,Hydralazine,Insulin,Zestril, Metformin, Lopressor,Januvia, Aldactone Medical History: 62 y/o male. Hx of diabetes,hypertension. Target HR: 158 bpm Resting ECG: RSR. Resting Heart Rate: 97 bpm Resting Blood Pressure: 164/100mmHg Submaximum (85%): 134 bpm POST EXERCISE Reason for Termination: Blood Pressure went upto 250/100 Target HR: No Max HR: 153 bpm 96% of Maximum Predicted HR: 158 bpm Exercise duration: 05:01 min:sec, 2 Stage Exercise capacity: 7.0METs Max Blood Pressure: 250/100mmHg Blood Pressure response to exercise: resting hypertension - exaggerated response Heart Rate response to exercise: appropriate Chest Pain: No, none Angina index: 0 Arrhythmia: No, none ST Change: Yes, Less than 1mm ST Depression in 2,3,AVF,V6. Deviation: 0 mm INTERPRETATION Stress EKG Conclusion: MYOVIEW NUCLEAR STRESS TEST STOPPED AFTER 5 MINUTES OF TIMUR PROTOCOL DUE TO EXAGGERATED BP RESPONSE 250/100. PATIENT ACHIEVED 96% OF PREDICTED HEART RATE. NO CHEST PAIN. NO SIGNIFICANT ST-T CHANGES. NUCLEAR SCAN REPORT PENDING. Signed by Matilde Gooden Electronically Approved: 12/05/2017 12:05:28 EXAM: Myocardial Perfusion REST/STRESS Stress Test Type: Exercise Treadmill Imaging Protocol Rest Spect myocardial perfusion imaging was performed in supine position 45 minutes following the injection of 10.9 mCi of Tc-99 Myoview. At peak stress, the patient was injected intravenously with 30.2mCi of Tc-99 tetrofosmin after an exercise time of 5 minutes and 01 seconds. Gated Stress Spect was performed 65 minutes after intravenous Tc-99 Myoview injection. The images were gated to evaluate regional wall motion and calculate ventricular ejection fraction.Images were reconstructed using backfilter projection method in short horizontal and verticle long axis. Spect slices were generated. LV Perfusion The quality of the study is good. The left ventricle is mildly enlarged in size with thickened myocardium. The right ventricle is unremarkable. The lung uptake is within normal limits. The distribution of tracer reveals normal uptake pattern throughout the LV myocardium on the stress study. The rest myocardial perfusion study shows no significant change. Wall Motion Wall motion study shows good contractility of the left ventricle. LVEF = 53%. Conclusion 1. Normal SPECT myocardial perfusion study. 2. Normal gated wall motion of the left ventricle.
--- NOTE | 2017-12-05 23:36 | CARD ---
APPROVED REPORT Date of service: 12/04/2017 EXAM: Two-dimensional and M-mode echocardiogram with Doppler and color Doppler. INDICATION Hypertension/HCVD 2D DIMENSIONS Left Atrium (2D)4.5 (1.6-4.0cm)IVSd1.9 (0.7-1.1cm) LVDd4.1 (3.9-5.9cm)PWd1.9 (0.7-1.1cm) LVDs3.0 (2.5-4.0cm)FS (%) 26.7 % LVEF (%)52.6 (>50%) M-Mode DIMENSIONS Aortic Root3.90 (2.2-3.7cm)Aortic Cusp Exc.1.70 (1.5-2.0cm) Aortic Valve AoV Peak Zsvecmsg183.0cm/Myke Peak GR.7mmHg Mitral Valve MV E Janvazue21.9cm/sMV A Ckyfrbpy07.4cm/sE/A ratio0.6 TDI Lateral E' Peak V8.33cm/sMedial E' Peak V3.02cm/sE/Lateral E'6.0 E/Medial E'16.5 Pulmonary Valve PV Peak Lwteokjz09.5cm/sPV Peak Grad.2mmHg Tricuspid Valve TR Peak [id number]/sRAP [id number] Peak Gr.11mmHg [id number] LEFT VENTRICLE The left ventricle is normal size. There is moderate concentric left ventricular hypertrophy. The left ventricular function is normal.EF-55% There is normal LV segmental wall motion. Transmitral Doppler flow pattern is Grade III-reversible restrictive diastolic dysfunction. No left ventricle thrombus noted on this study. There is no ventricular septal defect visualized. There is no left ventricular aneurysm. There is no mass noted in the left ventricle. RIGHT VENTRICLE The right ventricle is normal size. There is normal right ventricular wall thickness. The right ventricular systolic function is normal. ATRIA The left atrium is mildly dilated. The right atrium size is normal. The interatrial septum is intact with no evidence for an atrial septal defect. AORTIC VALVE The aortic valve is thickened but opens well. There is trace aortic regurgitation. There is no aortic valvular stenosis. There is no aortic valvular vegetation. MITRAL VALVE The mitral valve is thickened but opens well. Mitral regurgitation is trace. There is no mitral valve stenosis. There is no evidence of mitral valve prolapse. TRICUSPID VALVE The tricuspid valve leaflets are thickened , but open well. There is trace tricuspid regurgitation.RVSP-19 mmof hg. There is no tricuspid valve stenosis. There is no tricuspid valve prolapse or vegetation. PULMONIC VALVE The pulmonary valve is normal in structure. There is trace pulmonic valvular regurgitation. There is no pulmonic valvular stenosis. GREAT VESSELS The aortic root is normal in size. The ascending aorta is normal in size. The pulmonary artery is normal. The IVC is normal in size and collapses >50% with inspiration. PERICARDIAL EFFUSION There is no pleural effusion. There is no pericardial effusion. <Conclusion> The left ventricle is normal size. There is moderate concentric left ventricular hypertrophy. There is trace aortic regurgitation. Mitral regurgitation is trace. There is trace tricuspid regurgitation.RVSP-19 mmof hg. There is trace pulmonic valvular regurgitation. The IVC is normal in size and collapses >50% with inspiration. There is no pericardial effusion. No Vegetation noted.
== END 2017-12-05 15:49 | disposition home or self-care (01) | DRG 639 ==
LOC: ED 19:42 → ERH 21:31 → 2RNO 12-02 00:52 → OBSVTOIN 12-02 14:42 → 5RNO 12-04 15:55
PROVIDERS: ADMIT Internal Medicine; ATTEND Internal Medicine
DX: E11.65 Type 2 diabetes mellitus with hyperglycemia (principal); I11.9 Hypertensive heart disease without heart failure; E78.5 Hyperlipidemia, unspecified; D64.9 Anemia, unspecified; E78.00 Pure hypercholesterolemia, unspecified; E78.1 Pure hyperglyceridemia; E87.8 Other disorders of electrolyte and fluid balance, not elsewhere classified; E66.9 Obesity, unspecified; Z79.4 Long term (current) use of insulin; Z91.14 Patient's other noncompliance with medication regimen; Z68.37 Body mass index [BMI] 37.0-37.9, adult; Z87.01 Personal history of pneumonia (recurrent)